=== PATIENT | male | born 1985 | race Caucasian/White ===

== ENCOUNTER 2024-10-01 20:30 | Emergency (ER) | payer OTHER, SELFPAY ==
[2024-10-01 20:45] VITALS: BP 147/107
--- NOTE | 2024-10-02 00:26 | ED.GENMED ---
History of Present Illness
General
Chief Complaint: Crisis Evaluation
Source: patient and police
Exam Limitations: none
Time Seen by Provider: 10/01/24 23:38
Nursing documentation reviewed up to this point in time: agreed with
History of Present Illness
History of Present Illness:
38-year-old male presents emergency department due to a 302. He states he is hearing voices from ultrasound radio that is wired into his head. He states he got in a scuffle with police and was brought here.
Past History
Past History
ED Past Medical History: Psychiatric and Other (Ulcerative Colitis, ADD, depression, intermittent explosive disorder, cocaine use)
Social History
Tobacco: Smoker
Alcohol: Occasional
Drug: Cocaine
Personal: Single
Living: with family
Employment: Employed
Family History
Family History: Negative Diabetes or Hypertension
Review of Systems
Review of Systems
Allergies reviewed?: Yes
All Other Systems: Not applicable
Constitutional: Reports no symptoms
EENT: Reports no symptoms
Respiratory: Reports no symptoms
Cardiac: Reports no symptoms
ABD/GI: Reports no symptoms
: Reports no symptoms
Musculoskeletal: Reports no symptoms
Skin: Reports no symptoms
Neurological: Reports no symptoms
Endocrine: Reports no symptoms
Hematologic/Lymphatic: Reports no symptoms
Psychiatric: Reports hallucinations (Auditory)
Phy Exam
Physical Exam
Physical Exam:
Physical Exam
General: no apparent distress, not acutely ill
Neck: supple. no meningeal signs. normal posterior pharynx
Heart: s1/s2 regular rate and rhythm, no murmur. equal radial
pulses.
HEENT: Pupils equal round reactive to light, EOMI
Lungs: no acute respiratory distress. clear bilaterally
Abdomen: normal bowel sounds. not tender. no CVAT
Neuro: alert and oriented. no focal neurological deficits cranial nerves II through XII intact
Skin: no rash, abrasions left arm and left leg
Psychiatric: well kept. interactive and cooperative, auditory hallucination
Extremities: no edema. no calf tenderness. negative homans. good distal pulses
Course
Orders/Labs/Results
Orders:
Orders
10/01/24 21:06
Crisis Consult Urgent
Reason for Consult: 302
10/01/24 23:38
Urine Drug Abuse Screen Urgent
Vital Signs
Initial and Last Documented VS:
Initial Vital Signs
Temp Pulse Resp BP Pulse Ox
97.6 F 117 22 147/107 94
10/01/24 20:45 10/01/24 20:45 10/01/24 20:45 10/01/24 20:45 10/01/24 20:45
Last Documented Vital Signs
Temp Pulse Resp BP Pulse Ox
97.6 F 117 22 147/107 94
10/01/24 20:45 10/01/24 20:45 10/01/24 20:45 10/01/24 20:45 10/01/24 20:45
MDM/Problems Addressed
Differential Diagnosis Includes:
Drug use, psychosis
MDM/Problems Addressed:
38-year-old male with psychosis. 302 upheld by telepsychiatry.
Chronic conditions affecting care: Psychiatric illness
Acute Exacerbation and/or Progression of Chronic Illness: Psychiatric illness
*Pulse Oximetry
SaO2: 94
Oxygen Mode of Delivery: Room air
Patient hypoxic: no
*Critical Care Note
Total Time (30-74mins, 75-104mins- exclusive of procedures): Not Applicable
Data Reviewed
Further Testing Considered But Not Given:
CT head not indicated
ED Attending Note
-
Portions of this chart may have been created with voice recognition software.� Occasional wrong word or��sound alike� substitutions may have occurred due to the inherent limitations of voice recognition software.
Discharge Plan
Departure
Patient Disposition: Psych Facility
Date of Disposition: 10/02/24
Time of Disposition: 00:29
Patient Status:: 302
Patient with high blood pressure during this ER visit?: Yes
Condition: Good
Discharge Problem:
Psychosis
Prescriptions:
No Action
multivitamin [Multi-Day] 1 EACH tablet
1 tab PO DAILY
pantoprazole 40 MG tablet,delayed release (DR/EC)
40 mg PO DAILY
dextroamphetamine-amphetamine 10 MG tablet
10 mg PO DAILY
lorazepam 0.5 MG tablet
0.5 mg PO HS
dextroamphetamine-amphetamine [Adderall] 5 MG tablet
5 mg PO .LUNCH TIME
dorzolamide 1 DROP drops
1 drp ophthalmic (eye) TID
brimonidine-timolol [Combigan] 1 DROP drops
1 drp ophthalmic (eye) Q12H MDD EYE
difluprednate [Durezol] 5 ML drops
1 drp OP .6XD
Referrals:
UNKNOWN - PT DOES,NOT KNOW [Family Provider]
Interventions
Interventions:
*Risk Screen - Suicide Last Done: 10/01/24 20:49
*General Assessment Last Done: 10/01/24 20:49
*Neglect/Abuse Screening Last Done: 10/01/24 20:49
*ED- Fall Risk Assessment Last Done: 10/01/24 20:49
*ED COVID-19 Vaccine History Last Done: 10/01/24 20:53
ED-Psychological Assessment Last Done: 10/01/24 21:42
Discharge Date and Time
Print Language: ETHIOPIAN
[2024-10-02 09:45] VITALS: BP 133/89
--- NOTE | 2024-10-02 09:45 | EDRN ---
Patient continues to state that he does not need to go to a psych hospital but needs to go somewhere where they can help 'me with the radio frequency in my head. This is a physical problem. It's not a mental problem.'
[2024-10-02 10:08] VITALS: BP 133/89
--- NOTE | 2024-10-02 10:08 | EDRN ---
Report given to Acute care ambulance staff.
== END 2024-10-02 10:05 ==
LOC: EMR 20:30
PROVIDERS: EMERGENCY PHYSICIAN Emergency Medicine
DX: F29 Unspecified psychosis not due to a substance or known physiological condition (principal); R03.0 Elevated blood-pressure reading, without diagnosis of hypertension; F31.9 Bipolar disorder, unspecified; F41.9 Anxiety disorder, unspecified; F63.81 Intermittent explosive disorder; F98.8 Other specified behavioral and emotional disorders with onset usually occurring in childhood and adolescence; F14.90 Cocaine use, unspecified, uncomplicated; R45.851 Suicidal ideations; R45.850 Homicidal ideations; G89.29 Other chronic pain; K51.90 Ulcerative colitis, unspecified, without complications; E29.1 Testicular hypofunction; H54.61 Unqualified visual loss, right eye, normal vision left eye; F17.210 Nicotine dependence, cigarettes, uncomplicated; Z91.51 Personal history of suicidal behavior
CPT/HCPCS: 99285